=== PATIENT | male | born 1960 | race African-American/Black ===

== ENCOUNTER 2018-02-09 08:35 | Inpatient (IN) | payer BC ==
[2018-02-09 10:21] VITALS: BMI 26.4
[2018-02-09] MEDS ORDERED: MENTHOL/PHENOL 1 EACH UD MM PRN (11:19)
[2018-02-09] MEDS ORDERED: MAG HYDROX/AL HYDROX/SIMETH 30 ML UNIT-DOSE CUP PO PRN (11:19)
[2018-02-09] MEDS ORDERED: ACETAMINOPHEN 325 MG TABLET (FP) PO PRN (11:19)
[2018-02-09] MEDS ORDERED: guaiFENesin/D-METHORPHAN HB 10 ML UNIT-DOSE CUPS PO PRN (11:19)
[2018-02-09] MEDS ORDERED: chlordiazePOXIDE HCL 25 MG CAPSULE PO PRN (11:19)
[2018-02-09] MEDS ORDERED: hydrOXYzine PAMOATE 50 MG CAPSULE (FP) PO PRN (11:19)
[2018-02-09] MEDS ORDERED: LOPERAMIDE HCL 2 MG CAPSULE PO PRN (11:19)
[2018-02-09] MEDS ORDERED: P-EPHED 60MG/TRIPROLIDI 2.5MG TABLET PO PRN (11:19)
[2018-02-09] MEDS ORDERED: MAGNESIUM CITRATE 300 ML BOTTLE PO PRN (11:19)
[2018-02-09] MEDS ORDERED: NICOTINE POLACRILEX 2 MG GUM BUC PRN (11:19)
[2018-02-09] MEDS ORDERED: MAGNESIUM HYDROX 2400MG/30ML ORAL SUSPENSION 30 ML CUP PO PRN (11:19)
[2018-02-09] MEDS ORDERED: IBUPROFEN 400 MG TABLET (FP) PO PRN (11:19)
--- NOTE | 2018-02-09 11:19 | HP ---
CIWA Score - CIWA Score Nausea/Vomitin Muscle Tremors: 3 Anxiety: 3 Agitation: 3 Paroxysmal Sweats: 3 Orientation: 0-Oriented Tacttile Disturbances: 0-None Auditory Disturbances: 0-None Visual Disturbances: 0-None Headache: 2-Mild CIWA-Ar Total Score: 17 Admission ROS BHS - HPI Chief Complaint: alcohol withdrawal sx Allergies/Adverse Reactions: Allergies Allergy/AdvReac Type Severity Reaction Status Date / Time No Known Allergies Allergy Verified 02/09/18 10:39 History of Present Illness: 57 yo mwith h/o alcohol use disorder , severee, was in treament 20 years ago with long periods of sobriety relpased last year to daily alcohol use and now requesting inpatient detoxxification frmo alcohol becasue of alcohol withdrawal sx. denies h/o seizures, dts or SI int eh past. wantts to go to rehab when he completes detox. smokes 1PPD. PMHX htn on meds, depression and thirsty, anxiety when he deso not drink Exam Limitations: No Limitations - Ebola screening Have you traveled outside of the country in the last 21 days: No (N) Have you had contact with anyone from an Ebola affected area: No Have you been sick,other than usual withdrawal symptoms: No Do you have a fever: No - Review of Systems Constitutional: Chills, Diaphoresis, Changes in sleep, Unintentional Wgt. Loss EENT: reports: No Symptoms Reported Respiratory: reports: No Symptoms reported Cardiac: reports: No Symptoms Reported GI: reports: Nausea, Poor Appetite, Poor Fluid Intake, Indigestion, Abdominal cramping : reports: No Symptoms Reported Musculoskeletal: reports: Back Pain, Joint Pain, Muscle Pain Integumentary: reports: Flushing, Sweating Neuro: reports: Headache, Tremors Endocrine: reports: Increased Thirst Hematology: reports: No Symptoms Reported Psychiatric: reports: Judgement Intact, Mood/Affect Appropiate, Orientated x3, Anxious, Depressed Other Systems: Reviewed and Negative Patient History - Patient Medical History Hx Anemia: No Hx Asthma: No Hx Chronic Obstructive Pulmonary Disease (COPD): No Hx Cancer: No Hx Cardiac Disorders: No Hx Congestive Heart Failure: No Hx Hypertension: Yes Hx Hypercholesterolemia: No Hx Pacemaker: No HX Cerebrovascular Accident: Yes (stroke 2 years ag0, ) Hx Seizures: No Hx Dementia: No Hx Diabetes: No Hx Gastrointestinal Disorders: No Hx Genitourinary Disorders: No Hx Sexually Transmitted Disorders: No Hx Renal Disease (ESRD): No Hx Thyroid Disease: No Hx Human Immunodeficiency Virus (HIV): No Hx Hepatitis C: No Hx Depression: Yes (when he deos not drink) Hx Suicide Attempt: No (no si at this tiem) Hx Bipolar Disorder: No Hx Schizophrenia: No - Patient Surgical History Past Surgical History: Yes Hx Neurologic Surgery: No Hx Cataract Extraction: No Hx Cardiac Surgery: No Hx Lung Surgery: No Hx Breast Surgery: No Hx Breast Biopsy: No Hx Abdominal Surgery: No Hx Appendectomy: No Hx Cholecystectomy: No Hx Genitourinary Surgery: No Hx Section: No Hx Orthopedic Surgery: Yes (torn meniscus, left knee at age 22) Anesthesia Reaction: No - PPD History Previous Implant?: Yes Documented Results: Negative w/o proof Implanted On Prior R Admission?: No PPD to be Administered?: Yes - Reproductive History Patient is a Female of Child Bearing Age (11 -55 yrs old): No Patient : No - Smoking Cessation Smoking history: Current every day smoker Have you smoked in the past 12 months: Yes Aproximately how many cigarettes per day: 20 Hx Chewing Tobacco Use: No Initiated information on smoking cessation: Yes 'Breaking Loose' booklet given: 02/09/18 - Substance & Tx. History Hx Alcohol Use: Yes Hx Substance Use: Yes Substance Use Type: Alcohol, Cocaine Hx Substance Use Treatment: Yes (20 years ago) - Substances Abused Crack Route: Smoking Frequency: Daily Amount used: $100 Age of first use: 47 Date of Last Use: 02/08/18 Alcohol-beer Route: Oral Frequency: Daily Amount used: 2-3 6 pks. Age of first use: 30 Date of Last Use: 02/08/18 Family Disease History - Family Disease History Family Disease History: Heart Disease: Mother (alcoholism), Other: Father ( alcoholism), Mother Admission Physical Exam BHS - Vital Signs Vital Signs: Vital Signs - 24 hr 02/09/18 10:17 Temperature 96.5 F L Pulse Rate 65 Respiratory 19 Rate Blood Pressure 126/79 - Physical General Appearance: Yes: No Apparent Distress, Nourished, Appropriately Dressed , Disheveled, Mild Distress, Tremorous, Irritable, Sweating, Anxious HEENTM: Yes: Within Normal Limits, EOMI, Hearing grossly Normal, Normal ENT Inspection, Normocephalic, Normal Voice, DALY, Pharynx Normal Respiratory: Yes: Within Normal Limits, Chest Non-Tender, Lungs Clear, Normal Breath Sounds, No Respiratory Distress, No Accessory Muscle Use Neck: Yes: Within Normal Limits, No masses,lesions,Nodules, Supple, Trachea in good position Breast: Yes: Breast Exam Deferred Cardiology: Yes: Within Normal Limits, Regular Rhythm, Regular Rate, S1, S2 Abdominal: Yes: Within Normal Limits, Normal Bowel Sounds, Non Tender, Flat, Soft, Increased Bowel Sounds Genitourinary: Yes: Within Normal Limits Back: Yes: Muscle Spasm Musculoskeletal: Yes: Back pain, Muscle Pain Extremities: Yes: Normal Capillary Refill, Normal Range of Motion, Non-Tender, Tremors Neurological: Yes: permit review assistant II-XII NML intact, Fully Oriented, Alert, Motor Strength 5/5, Normal Response, Depressed Affect Integumentary: Yes: Normal Color, Warm, Diaphoresis, Moist Lymphatic: Yes: Within Normal Limits - Addiitonal Findings: withdrawal sx - Diagnostic (1) Stroke Current Visit: Yes Status: Acute (2) Alcohol dependence with uncomplicated withdrawal Current Visit: Yes Status: Acute (3) Dehydration Current Visit: Yes Status: Acute (4) Depression Current Visit: Yes Status: Acute (5) Hypertension Current Visit: Yes Status: Acute (6) Nicotine dependence Current Visit: Yes Status: Acute (7) Cocaine dependence Current Visit: Yes Status: Acute Cleared for Admission [facility] - Detox or Rehab [facility] Level of Care: Medically Managed Detox Regimen/Protocol: Librium S Breath Alcohol Content Breath Alcohol Content: 0 Urine Drug Screen - Results Drug Screen Negative: No Urine Drug Screen Results: ALMA-Cocaine
[2018-02-09] MEDS ORDERED: chlordiazePOXIDE HCL 25 MG CAPSULE PO ONE (14:00)
[2018-02-09] MEDS: NICOTINE 21 MG/24 HOURS TOPICAL PATCH TD SCH (14:14)
[2018-02-09 14:30] LABS: HEMATOCRIT 38.3 % (35.4-49); HEMOGLOBIN 13.2 GM/dL (11.7-16.9); MCH 31.4 pg (25.7-33.7); MCHC 34.4 g/dl (32.0-35.9); MEAN CELL VOLUME 91.3 fl (80-96); MEAN PLT VOLUME 7.8 fl (7.5-11.1); PLATELET COUNT 258 K/MM3 (134-434); RBC 4.19 M/mm3 (4.00-5.60); WHITE BLOOD COUNT 3.2 K/mm3 (4.0-10.0)
[2018-02-09 14:57] LABS: SICKLE CELL SCREEN NEGATIVE (NEGATIVE)
[2018-02-09 15:02] LABS: ALBUMIN 4.1 g/dl (3.4-5.0); ALK PHOS 91 U/L (45-117); ANION GAP 10 (8-16); BILIRUBIN,TOTAL 0.7 mg/dL (0.2-1.0); BLOOD UREA NITROGEN 20 mg/dL (7-18); CALCIUM 9.7 mg/dL (8.5-10.1); CHLORIDE 103 mmol/L (98-107); CO2 31 mmol/L (21-32); CREATININE 1.2 mg/dL (0.7-1.3); GLUCOSE,RANDOM 108 mg/dL (74-106); POTASSIUM 4.3 mmol/L (3.5-5.1); SGOT/AST 53 U/L (15-37); SGPT/ALT 37 U/L (12-78); SODIUM 144 mmol/L (136-145); TOT PROT 7.4 g/dl (6.4-8.2)
--- NOTE | 2018-02-09 15:37 | EKG ---
Test Reason : Blood Pressure : / mmHG Vent. Rate : 059 BPM Atrial Rate : 059 BPM P-R Int : 144 ms QRS Dur : 098 ms QT Int : 422 ms P-R-T Axes : 075 064 -02 degrees QTc Int : 417 ms SINUS BRADYCARDIA WITH SINUS ARRHYTHMIA T WAVE ABNORMALITY, CONSIDER ANTEROLATERAL ISCHEMIA ABNORMAL ECG NO PREVIOUS ECGS AVAILABLE Confirmed by VIDA GARNER MD ([id number]) on 02/09/2018 3:37:32 PM Referred By: Confirmed By:VIDA GARNER MD
--- NOTE | 2018-02-09 16:40 | CONSULT ---
[facility] Psychiatric Consult - Data Date of interview: 02/09/18 Admission source: [facility] Identifying data: Pt. is a 57 year old male, , without kids, unemployed , and resides alone in a one bedroom apartment. Pt. denies receiving finanacial assistance. Pt. admitted to for alcohol and cocaine dependence. Substance Abuse History: Following information confirmed with Mr. Lozada: Smoking Cessation. Smoking history: Current every day smoker. Have you smoked in the past 12 months: Yes. Aproximately how many cigarettes per day: 20. Hx Chewing Tobacco Use: No. Initiated information on smoking cessation: Yes. ' Breaking Loose' booklet given: 02/09/18. - Substance & Tx. History. Hx Alcohol Use: Yes. Hx Substance Use: Yes. Substance Use Type: Alcohol, Cocaine. Hx Substance Use Treatment: Yes (20 years ago). - Substances Abused. Crack. Route: Smoking. Frequency: Daily. Amount used: $100. Age of first use: 47. Date of Last Use: 02/08/18. Alcohol-beer. Route: Oral. Frequency: Daily. Amount used: 2-3 6 pks. Age of first use: 30. Date of Last Use: 02/08/18 Medical History: Stroke in May of 2016, Torn meniscus left knee at age 22. Psychiatric History: Pt. denies h/o psychiatric hospitalization, outpatient care , and suicide attempt. Pt. reports seeing a therapist. States his mood has changes since his stroke in May 2016. Pt. denies h/o accepting psychotrophic medications. Physical/Sexual Abuse/Trauma History: Denies. Mental Status Exam - Mental Status Exam Alert and Oriented to: Time, Place, Person Cognitive Function: Good Patient Appearance: Well Groomed Mood: Hopeful Affect: Appropriate Patient Behavior: Appropriate, Cooperative Speech Pattern: Clear, Appropriate Voice Loudness: Normal Thought Process: Goal Oriented Thought Disorder: Not Present Hallucinations: Denies Suicidal Ideation: Denies Homicidal Ideation: Denies Insight/Judgement: Poor Sleep: Fair Appetite: Fair Muscle strength/Tone: Normal Gait/Station: Normal Psychiatric Findings - Problem List ([place] 1, 2,3) (1) Substance induced mood disorder Current Visit: Yes Status: Suspected (2) Alcohol dependence with uncomplicated withdrawal Current Visit: Yes Status: Acute (3) Cocaine dependence Current Visit: Yes Status: Acute (4) Stroke Current Visit: Yes Status: Acute - Initial Treatment Plan Initial Treatment Plan: Psychoeducation provided. Detoxification provided. Observation.
[2018-02-09] MEDS: chlordiazePOXIDE HCL 25 MG CAPSULE PO SCH ×2 (17:24→22:32)
[2018-02-09] MEDS ORDERED: MELATONIN 5 MG TABLETS PO PRN (22:00)
[2018-02-09 22:28] LABS: URINE APPEARANCE CLEAR; URINE BILIRUBIN NEGATIVE (<2.0 mg/dL); URINE BLOOD NEGATIVE (NEGATIVE); URINE COLOR LTYELLOW; URINE GLUCOSE (UA) NEGATIVE (NEGATIVE); URINE KETONE NEGATIVE (NEGATIVE); URINE LEUK ESTERASE NEGATIVE (NEGATIVE); URINE NITRITE NEGATIVE (NEGATIVE); URINE PROTEIN NEGATIVE (NEGATIVE); URINE UROBILINOGEN NEGATIVE mg/dL (0.2-1.0)
[2018-02-09] MEDS: THIAMINE HCL 100 MG TABLET (FP) PO SCH (22:32)
[2018-02-10] MEDS: chlordiazePOXIDE HCL 25 MG CAPSULE PO SCH ×4 (06:28→22:34)
[2018-02-10] MEDS: amLODIPine BESYLATE 10 MG TABLET (FP) PO SCH (10:18)
[2018-02-10] MEDS: PRENATAL VITAMINS W/ FOLIC ACID TABLET (FP) PO SCH (10:19)
[2018-02-10] MEDS: NICOTINE 21 MG/24 HOURS TOPICAL PATCH TD SCH (10:19)
--- NOTE | 2018-02-10 10:41 | PN ---
[facility] CIWA - CIWA Score Nausea/Vomitin-No Nausea/No Vomiting Muscle Tremors: 3 Anxiety: 3 Agitation: 3 Paroxysmal Sweats: 1-Minimal Palms Moist Orientation: 0-Oriented Tacttile Disturbances: 0-None Auditory Disturbances: 0-None Visual Disturbances: 0-None Headache: 0-None Present CIWA-Ar Total Score: 10 S Progress Note (SOAP) Subjective: denies dizziness no shortness of breath denies chest pain multiple stroke "three [place]" cocaine dependence, sweat tremor denies gi distress, tolerates food and fluid well ambulating steady gait alert coherent CN II-XII grossly intact felt "oozing" after melatonin Objective: 02/10/18 10:45 Vital Signs Temperature 97.9 F 02/10/18 10:24 Pulse Rate 66 02/10/18 10:24 Respiratory Rate 22 02/10/18 10:24 Blood Pressure 132/74 02/10/18 10:24 O2 Sat by Pulse Oximetry (%) Laboratory Last Values WBC 3.2 K/mm3 (4.0-10.0) L 02/09/18 11:30 RBC 4.19 M/mm3 (4.00-5.60) 02/09/18 11:30 Hgb 13.2 GM/dL (11.7-16.9) 02/09/18 11:30 Hct 38.3 % (35.4-49) 02/09/18 11:30 MCV 91.3 fl (80-96) 02/09/18 11:30 MCH 31.4 pg (25.7-33.7) 02/09/18 11:30 MCHC 34.4 g/dl (32.0-35.9) 02/09/18 11:30 RDW 14.0 % (11.9-15.9) 02/09/18 11:30 Plt Count 258 K/MM3 (134-434) 02/09/18 11:30 MPV 7.8 fl (7.5-11.1) 02/09/18 11:30 Sickle Cell Screen Negative (NEGATIVE) 02/09/18 11:30 Sodium 144 mmol/L (136-145) 02/09/18 11:30 Potassium 4.3 mmol/L (3.5-5.1) 02/09/18 11:30 Chloride 103 mmol/L (98-107) 02/09/18 11:30 Carbon Dioxide 31 mmol/L (21-32) 02/09/18 11:30 Anion Gap 10 (8-16) 02/09/18 11:30 BUN 20 mg/dL (7-18) H 02/09/18 11:30 Creatinine 1.2 mg/dL (0.7-1.3) 02/09/18 11:30 Creat Clearance w eGFR > 60 (>60) 02/09/18 11:30 Random Glucose 108 mg/dL (74-106) H 02/09/18 11:30 Calcium 9.7 mg/dL (8.5-10.1) 02/09/18 11:30 Total Bilirubin 0.7 mg/dL (0.2-1.0) 02/09/18 11:30 AST 53 U/L (15-37) H 02/09/18 11:30 ALT 37 U/L (12-78) 02/09/18 11:30 Alkaline Phosphatase 91 U/L (45-117) 02/09/18 11:30 Total Protein 7.4 g/dl (6.4-8.2) 02/09/18 11:30 Albumin 4.1 g/dl (3.4-5.0) 02/09/18 11:30 Urine Color Ltyellow 02/09/18 17:30 Urine Appearance Clear 02/09/18 17:30 Urine pH 6.0 (5.0-8.0) 02/09/18 17:30 Ur Specific [place] 1.016 (1.001-1.035) 02/09/18 17:30 Urine Protein Negative (NEGATIVE) 02/09/18 17:30 Urine Glucose (UA) Negative (NEGATIVE) 02/09/18 17:30 Urine Ketones Negative (NEGATIVE) 02/09/18 17:30 Urine Blood Negative (NEGATIVE) 02/09/18 17:30 Urine Nitrite Negative (NEGATIVE) 02/09/18 17:30 Urine Bilirubin Negative (<2.0 mg/dL) 02/09/18 17:30 Urine Urobilinogen Negative mg/dL (0.2-1.0) 02/09/18 17:30 Ur Leukocyte Esterase Negative (NEGATIVE) 02/09/18 17:30 Hep C Ab Diagnostic <0.1 s/co ratio (0.0-0.9) 02/09/18 11:30 Liver Fibrosis Interp (.) 02/09/18 11:30 HIV 1&2 Antibody Screen Negative 02/09/18 11:30 HIV P24 Antigen Negative 02/09/18 11:30 lab noted cardiac enzyme profile today lab informed 02/10/18 10:48 no acute distress Assessment: 02/10/18 10:46 withdrawal sx rule out DC 02/10/18 10:48 abnormal ekg compare with 02/09/18 ekg no significant change patient is asymptomatic Plan: continue detox cardiac enzyme today health teaching on risks of cocaine and nicotine related to DC and stroke discontinue melatonin
[2018-02-10] MEDS: ASPIRIN 81 MG CHEWABLE TABLETS PO SCH (10:50)
--- NOTE | 2018-02-10 13:32 | EKG ---
Test Reason : Blood Pressure : / mmHG Vent. Rate : 065 BPM Atrial Rate : 065 BPM P-R Int : 150 ms QRS Dur : 094 ms QT Int : 402 ms P-R-T Axes : 075 069 -40 degrees QTc Int : 418 ms NORMAL SINUS RHYTHM ABNORMAL ECG WHEN COMPARED WITH ECG OF 09-FEB-2018 14:17, NO SIGNIFICANT CHANGE WAS FOUND Confirmed by JANIYA MASSEY MD ([id number]) on 02/10/2018 1:32:12 PM Referred By: Confirmed By:JANIYA MASSEY MD
[2018-02-10] MEDS: THIAMINE HCL 100 MG TABLET (FP) PO SCH (22:34)
[2018-02-11] MEDS: chlordiazePOXIDE HCL 25 MG CAPSULE PO SCH ×2 (07:03→11:01)
--- NOTE | 2018-02-11 10:05 | PN ---
S CIWA - CIWA Score Nausea/Vomitin Muscle Tremors: 3 Anxiety: 3 Agitation: 3 Paroxysmal Sweats: 3 Orientation: 0-Oriented Tacttile Disturbances: 1-Very Mild Itch/Numbness Auditory Disturbances: 0-None Visual Disturbances: 0-None Headache: 1-Very Mild CIWA-Ar Total Score: 17 S Progress Note (SOAP) Subjective: nasua, sweats, interrupted sleep,a nxiety, tremors Objective: 02/11/18 10:04 Vital Signs - 24 hr 02/10/18 02/10/18 02/10/18 10:24 15:03 18:34 Temperature 97.9 F 98.4 F 97.5 F L Pulse Rate 66 72 66 Respiratory 22 18 20 Rate Blood Pressure 132/74 142/73 131/72 02/11/18 02/11/18 02/11/18 00:30 03:30 06:00 Temperature 97.0 F L Pulse Rate 68 Respiratory 18 18 18 Rate Blood Pressure 139/84 Laboratory Tests 02/09/18 02/09/18 02/09/18 11:30 11:30 11:30 WBC 3.2 L RBC 4.19 Hgb 13.2 Hct 38.3 MCV 91.3 MCH 31.4 MCHC 34.4 RDW 14.0 Plt Count 258 MPV 7.8 Sickle Cell Screen Negative Sodium 144 Potassium 4.3 Chloride 103 Carbon Dioxide 31 Anion Gap 10 BUN 20 H Creatinine 1.2 Creat Clearance w eGFR > 60 Random Glucose 108 H Calcium 9.7 Total Bilirubin 0.7 AST 53 H ALT 37 Alkaline Phosphatase 91 Creatine Kinase Creatine Kinase Index CK-MB (CK-2) Troponin I Total Protein 7.4 Albumin 4.1 Urine Color Urine Appearance Urine pH Ur Specific [place] Urine Protein Urine Glucose (UA) Urine Ketones Urine Blood Urine Nitrite Urine Bilirubin Urine Urobilinogen Ur Leukocyte Esterase RPR Titer Hep C Ab Diagnostic Liver Fibrosis Interp HIV 1&2 Antibody Screen Negative HIV P24 Antigen Negative 02/09/18 02/09/18 02/09/18 11:30 11:30 17:30 WBC RBC Hgb Hct MCV MCH MCHC RDW Plt Count MPV Sickle Cell Screen Sodium Potassium Chloride Carbon Dioxide Anion Gap BUN Creatinine Creat Clearance w eGFR Random Glucose Calcium Total Bilirubin AST ALT Alkaline Phosphatase Creatine Kinase Creatine Kinase Index CK-MB (CK-2) Troponin I Total Protein Albumin Urine Color Ltyellow Urine Appearance Clear Urine pH 6.0 Ur Specific [place] 1.016 Urine Protein Negative Urine Glucose (UA) Negative Urine Ketones Negative Urine Blood Negative Urine Nitrite Negative Urine Bilirubin Negative Urine Urobilinogen Negative Ur Leukocyte Esterase Negative RPR Titer Nonreactive Hep C Ab Diagnostic <0.1 Liver Fibrosis Interp HIV 1&2 Antibody Screen HIV P24 Antigen 02/10/18 11:58 WBC RBC Hgb Hct MCV MCH MCHC RDW Plt Count MPV Sickle Cell Screen Sodium Potassium Chloride Carbon Dioxide Anion Gap BUN Creatinine Creat Clearance w eGFR Random Glucose Calcium Total Bilirubin AST ALT Alkaline Phosphatase Creatine Kinase 1669 H Creatine Kinase Index 0.1 CK-MB (CK-2) 2.639 Troponin I < 0.02 Total Protein Albumin Urine Color Urine Appearance Urine pH Ur Specific [place] Urine Protein Urine Glucose (UA) Urine Ketones Urine Blood Urine Nitrite Urine Bilirubin Urine Urobilinogen Ur Leukocyte Esterase RPR Titer Hep C Ab Diagnostic Liver Fibrosis Interp HIV 1&2 Antibody Screen HIV P24 Antigen Assessment: 02/11/18 10:04 withdraal sx, cont detox, elevavated CK fluids
[2018-02-11] MEDS: amLODIPine BESYLATE 10 MG TABLET (FP) PO SCH (11:01)
[2018-02-11] MEDS: ASPIRIN 81 MG CHEWABLE TABLETS PO SCH (11:01)
[2018-02-11] MEDS: PRENATAL VITAMINS W/ FOLIC ACID TABLET (FP) PO SCH (11:01)
[2018-02-11] MEDS: NICOTINE 21 MG/24 HOURS TOPICAL PATCH TD SCH (11:01)
[2018-02-11] MEDS: chlordiazePOXIDE 5 MG CAPSULE PO SCH ×2 (17:51→22:36)
[2018-02-11] MEDS: THIAMINE HCL 100 MG TABLET (FP) PO SCH (22:36)
[2018-02-12] MEDS: chlordiazePOXIDE 5 MG CAPSULE PO SCH ×2 (06:34→09:00)
[2018-02-12 07:00] VITALS: BP 153/84; PULSE 68; TEMP 97.2
--- NOTE | 2018-02-12 08:17 | PN ---
S Progress Note (SOAP) Subjective: ALERT,NO COMPLAINT Objective: 02/12/18 08:13 Vital Signs Temperature 97.2 F L 02/12/18 06:59 Pulse Rate 68 02/12/18 06:59 Respiratory Rate 20 02/12/18 06:59 Blood Pressure 153/84 02/12/18 06:59 O2 Sat by Pulse Oximetry (%) Assessment: 02/12/18 08:14 PATIENT IS STABLE FOR DISCHARGE TODAY Plan: FOLLOW UP WITH AFTER CARE PROGRAM ARRANGEMENT
--- NOTE | 2018-02-12 08:20 | DS ---
[facility] Detox Discharge Summary Admission Date: 02/09/18 Discharge Date: 02/12/18 - History Present History: Alcohol Dependence, Cocaine Dependence Additional Comments: PATIENT IS STABLE FOR DISCHARGE TODAY,FOLLOW UP WITH AFTER CARE PROGRAM ARRANGEMENT Pertinent Past History: HYPERTENSION CVA NICOTINE DEPENDENCE - Physical Exam Results Vital Signs: Vital Signs Temperature 97.2 F L 02/12/18 06:59 Pulse Rate 68 02/12/18 06:59 Respiratory Rate 20 02/12/18 06:59 Blood Pressure 153/84 02/12/18 06:59 O2 Sat by Pulse Oximetry (%) Pertinent Admission Physical Exam Findings: WITHDRAWAL SIGNS AND SYMPTOM Vital Signs Temperature 97.2 F L 02/12/18 06:59 Pulse Rate 68 02/12/18 06:59 Respiratory Rate 20 02/12/18 06:59 Blood Pressure 153/84 02/12/18 06:59 O2 Sat by Pulse Oximetry (%) Laboratory Last Values WBC 3.2 K/mm3 (4.0-10.0) L 02/09/18 11:30 RBC 4.19 M/mm3 (4.00-5.60) 02/09/18 11:30 Hgb 13.2 GM/dL (11.7-16.9) 02/09/18 11:30 Hct 38.3 % (35.4-49) 02/09/18 11:30 MCV 91.3 fl (80-96) 02/09/18 11:30 MCH 31.4 pg (25.7-33.7) 02/09/18 11:30 MCHC 34.4 g/dl (32.0-35.9) 02/09/18 11:30 RDW 14.0 % (11.9-15.9) 02/09/18 11:30 Plt Count 258 K/MM3 (134-434) 02/09/18 11:30 MPV 7.8 fl (7.5-11.1) 02/09/18 11:30 Sickle Cell Screen Negative (NEGATIVE) 02/09/18 11:30 Sodium 144 mmol/L (136-145) 02/09/18 11:30 Potassium 4.3 mmol/L (3.5-5.1) 02/09/18 11:30 Chloride 103 mmol/L (98-107) 02/09/18 11:30 Carbon Dioxide 31 mmol/L (21-32) 02/09/18 11:30 Anion Gap 10 (8-16) 02/09/18 11:30 BUN 20 mg/dL (7-18) H 02/09/18 11:30 Creatinine 1.2 mg/dL (0.7-1.3) 02/09/18 11:30 Creat Clearance w eGFR > 60 (>60) 02/09/18 11:30 Random Glucose 108 mg/dL (74-106) H 02/09/18 11:30 Calcium 9.7 mg/dL (8.5-10.1) 02/09/18 11:30 Total Bilirubin 0.7 mg/dL (0.2-1.0) 02/09/18 11:30 AST 53 U/L (15-37) H 02/09/18 11:30 ALT 37 U/L (12-78) 02/09/18 11:30 Alkaline Phosphatase 91 U/L (45-117) 02/09/18 11:30 Creatine Kinase 1669 IU/L (39-308) H 02/10/18 11:58 Creatine Kinase Index 0.1 % (0.0-5.0) 02/10/18 11:58 CK-MB (CK-2) 2.639 ng/mL (0.5-3.6) 02/10/18 11:58 Troponin I < 0.02 ng/ml (0.00-0.05) 02/10/18 11:58 Total Protein 7.4 g/dl (6.4-8.2) 02/09/18 11:30 Albumin 4.1 g/dl (3.4-5.0) 02/09/18 11:30 Urine Color Ltyellow 02/09/18 17:30 Urine Appearance Clear 02/09/18 17:30 Urine pH 6.0 (5.0-8.0) 02/09/18 17:30 Ur Specific [place] 1.016 (1.001-1.035) 02/09/18 17:30 Urine Protein Negative (NEGATIVE) 02/09/18 17:30 Urine Glucose (UA) Negative (NEGATIVE) 02/09/18 17:30 Urine Ketones Negative (NEGATIVE) 02/09/18 17:30 Urine Blood Negative (NEGATIVE) 02/09/18 17:30 Urine Nitrite Negative (NEGATIVE) 02/09/18 17:30 Urine Bilirubin Negative (<2.0 mg/dL) 02/09/18 17:30 Urine Urobilinogen Negative mg/dL (0.2-1.0) 02/09/18 17:30 Ur Leukocyte Esterase Negative (NEGATIVE) 02/09/18 17:30 RPR Titer Nonreactive (NONREACTIVE) 02/09/18 11:30 Hep C Ab Diagnostic <0.1 s/co ratio (0.0-0.9) 02/09/18 11:30 Liver Fibrosis Interp (.) 02/09/18 11:30 HIV 1&2 Antibody Screen Negative 02/09/18 11:30 HIV P24 Antigen Negative 02/09/18 11:30 - Treatment Hospital Course: Detox Protocol Followed, Detoxed Safely, Responded well, Discharged Condition Good Patient has Accepted a Rehab Referral to: DECLINED - Medication Discharge Medications: Ambulatory Orders Amlodipine Besylate [Norvasc -] 10 mg PO DAILY 02/09/18 - Diagnosis (1) Alcohol dependence with uncomplicated withdrawal Current Visit: Yes Status: Acute (2) Cocaine dependence Current Visit: Yes Status: Acute (3) Dehydration Current Visit: Yes Status: Acute (4) Hypertension Current Visit: Yes Status: Acute (5) Nicotine dependence Current Visit: Yes Status: Acute (6) Stroke Current Visit: Yes Status: Acute (7) Substance induced mood disorder Current Visit: Yes Status: Suspected - AMA Did Patient Leave Against Medical Advice: No
[2018-02-12] MEDS: amLODIPine BESYLATE 10 MG TABLET (FP) PO SCH (09:00)
[2018-02-12] MEDS: ASPIRIN 81 MG CHEWABLE TABLETS PO SCH (09:00)
[2018-02-12] MEDS: NICOTINE 21 MG/24 HOURS TOPICAL PATCH TD SCH (09:00)
[2018-02-12] MEDS: PRENATAL VITAMINS W/ FOLIC ACID TABLET (FP) PO SCH (09:00)
[2018-02-12] MEDS ORDERED: chlordiazePOXIDE HCL 10 MG CAPSULE PO SCH (17:00)
== END 2018-02-12 09:00 | disposition home or self-care (01) | DRG 897 ==
LOC: YASAS 08:35 → Y6N 12:28
PROVIDERS: ADMIT Internal Medicine; ATTEND Internal Medicine
PROC: HZ2ZZZZ Detoxification Services for Substance Abuse Treatment (ICD-10-PCS; principal; 2018-02-09)
DX: F10.230 Alcohol dependence with withdrawal, uncomplicated (principal); F14.20 Cocaine dependence, uncomplicated; F17.210 Nicotine dependence, cigarettes, uncomplicated; F19.24 Other psychoactive substance dependence with psychoactive substance-induced mood disorder; F32.9 Major depressive disorder, single episode, unspecified; E86.0 Dehydration; I10 Essential (primary) hypertension; Z86.73 Personal history of transient ischemic attack (TIA), and cerebral infarction without residual deficits
CPT/HCPCS: 36415; 80053; 81003; 82550; 82553; 84484; 85027; 85660; 86593; 87389; 93005; 93010